=== PATIENT | male | born 1985 | race American Indian/Alaskan Native ===

== ENCOUNTER 2017-12-30 23:55 | Emergency (ER) | payer OTHER ==
[2017-12-31] MEDS ORDERED: MOTRIN PO ONE (00:34)
[2017-12-31] MEDS ORDERED: ZOFRAN ODT PO ONE (00:34)
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
[2017-12-31 01:49] VITALS: BP 138/76
--- NOTE | 2017-12-31 01:50 | XRay Report ---
FINAL REPORT EXAM: XR SHOULDER 2+V LT HISTORY: left shoulder TECHNIQUE: Three views of the left shoulder were submitted. FINDINGS: The glenohumeral and AC joints appear intact. The subacromial space appears normal. The soft tissues are well maintained. IMPRESSION: Within normal limits.
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
== END 2017-12-31 02:12 | disposition home or self-care (01) ==
LOC: ED 23:55
DX: S06.9X9A Unspecified intracranial injury with loss of consciousness of unspecified duration, initial encounter (principal); M54.2 Cervicalgia; M25.512 Pain in left shoulder; M25.562 Pain in left knee; M54.6 Pain in thoracic spine; M54.5 Low back pain; R55 Syncope and collapse; V49.49XA Driver injured in collision with other motor vehicles in traffic accident, initial encounter; Y93.89 Activity, other specified; Y99.8 Other external cause status; Y92.410 Unspecified street and highway as the place of occurrence of the external cause
CPT/HCPCS: 70450; 72125; Q0162